=== PATIENT | female | born 1970 | race Caucasian/White ===

== ENCOUNTER 2016-11-02 10:49 | Emergency (ER) | payer OTHER ==
[~2016-11-02] VITALS: Ht 165.1 cm; Wt 142.0 kg
[~2016-11-02 10:49] MED LIST: ALBU1AER5 INH; AZIT250T3 PO; OMEP20TA PO; ROBA750T PO
[2016-11-02 11:07] VITALS: BP 129/79; PULSE 100; RESP 16; TEMP 98.8; O2SAT 95
--- NOTE | 2016-11-02 12:54 | PD ---
HPI Chief Complaint: Abdominal Pain Time Seen by Provider: 12:39 Travel History International Travel<30 days: No Contact w/Intl Traveler<30days: No Traveled to known affect area: No History of Present Illness HPI The patient is a 46-year-old female who presents to the emergency department for increasing abdominal pain with inability to have a bowel movement. The patient has a history of hernias secondary to section, including a hernia through the section scarring as well as a periumbilical hernia. The patient notes increasing difficulty having a bowel movement over the last week and was passing flatness until yesterday. The patient now complains of increasing left upper quadrant abdominal pain, but denies any nausea or vomiting. The patient states she is had an approximately 10 pound weight gain over the last week. The patient denies any known history of previous small bowel obstructions or adhesions. The patient has taken over- the-counter senna and milk of magnesia without any relief of her symptoms. The patient does not currently have a primary physician until November 07 secondary to insurance issues. The patient denies any fever, chills, or sweats. PFSH Past Medical History Asthma: Yes Cardiovascular Problems: No COPD: Yes Diminished Hearing: No Inguinal Hernia: Yes Respiratory: Yes (bronchitis) Immunizations Current: Yes Pneumonia: Yes (?) Tetanus Vaccination: Unknown PNEUMOCCOCAL Vaccine (Year): 2 ?: Not Menopausal: Yes : 4 Para: 5 Tubal Ligation: Yes Past Surgical History Section: Yes (X2) Gynecologic Surgery: Yes (C SECTIONS) Social History Alcohol Use: No Tobacco Use: Yes (1 PPD) Substance Use: No Allergies-Medications (Allergen,Severity, Reaction): Coded Allergies: No Known Allergies (Unverified , 11/02/16) Reported Meds & Prescriptions Reported Meds & Active Scripts Active Omeprazole 20 Mg Tab 20 Mg PO DAILY Proair Respiclick Inh (Albuterol Sulfate) 90 Mcg/Act Aerp 2 Puff INH Q6H PRN Robaxin (Methocarbamol) 750 Mg Tab 750 Mg PO Q8HR Azithromycin 250 Mg Tab 250 Mg PO DIRECTED Take 2 tabs (500 mg) on day 1 then 1 tab daily x 4 days. Review of Systems Except as stated in HPI: all other systems reviewed are Neg General / Constitutional: No: Fever Cardiovascular: No: Chest Pain or Discomfort Respiratory: No: Shortness of Breath Gastrointestinal: Positive: Abdominal Pain, Constipation, Changes in Bowel Habits, No: Nausea, Vomiting, Diarrhea, Loss of Appetite Musculoskeletal: No: Weakness Physical Exam Narrative GENERAL: Awake, alert, nontoxic-appearing 46-year-old female who appears her stated age and is in no acute respiratory distress. SKIN: Warm and dry. HEAD: Atraumatic. Normocephalic. EYES: No injection or drainage. ENT: No nasal bleeding or discharge. Mucous membranes pink and moist. NECK: Trachea midline. No JVD. GASTROINTESTINAL: Abdomen soft, obese, minimal left upper quadrant tenderness. No rebound to his, guarding, or rigidity. No obvious hernia through the incision, apparent diastases when sitting upright. MUSCULOSKELETAL: No obvious deformities. No clubbing. No cyanosis. No edema. NEUROLOGICAL: Awake and alert. No obvious cranial nerve deficits. Motor grossly within normal limits. Normal speech. PSYCHIATRIC: Appropriate mood and affect; insight and judgment normal. Data Data Last Documented VS Vital Signs Date Time Temp Pulse Resp B/P Pulse Ox O2 Delivery O2 Flow Rate FiO2 11/02/16 11:07 98.8 100 16 129/[address] Abd/Pel W/O Iv Contrast (11/02/16 12:46) [facility] Medical Decision Making Medical Screen Exam Complete: Yes Emergency Medical Condition: Yes Medical Record Reviewed: Yes Interpretation(s) Last Impressions Abdomen/Pelvis CT 11/02/16 1246 Signed Impressions: Service Date/Time: Wednesday, November 02, 2016 13:38 - CONCLUSION: No acute intra-abdominal or pelvic process. Defect in the left anterior pelvic wall with herniation of fat into the subcutaneous tissue, hernia. Keanu Cross MD Differential Diagnosis Differential diagnosis includes constipation, small bowel obstruction, partial small bowel obstruction, ileus, adhesions, internal hernia, incarcerated hernia , strangulated hernia. Narrative Course A CT of the abdomen and pelvis without contrast was ordered. CT reveals a hernia in the right anterior abdominal wall that contains fat, but no bowel. No evidence of obstruction. The patient will be prescribed GoLYTELY, she is advised to follow-up with her primary physician on an outpatient basis and return if symptoms worsen or progress. Diagnosis Primary Impression: Constipation Qualified Code: K59.00 - Constipation, unspecified constipation type Additional Impression: Abdominal pain Qualified Code: R10.12 - Left upper quadrant pain Patient Instructions: General Instructions Additional Instructions: Medications as directed. Please provide the patient a copy of her CT report at discharge. Follow-up with her primary physician. Return if symptoms worsen or progress. Med/Other Pt SpecificInfo: Prescription(s) given Scripts Peg-Electrolytes (Golytely 236 gm)4,000 Ml Soln4,000 Ml PO ONCE #1 CONTAINER Ref 0 Prov:Yoni Beatty MD 11/02/16 Disposition: 01 DISCHARGE HOME Condition: Stable Yoni Beatty MD Nov 02, 2016 12:54
--- NOTE | 2016-11-02 13:57 | RADHPO ---
EXAM DATE/TIME: 11/02/2016 13:38 [facility] COMPARISON: No previous studies available for comparison. INDICATIONS : Left upper quadrant pain and constipation x 1 week. ORAL CONTRAST: No oral contrast ingested. RADIATION DOSE: 22.27 CTDIvol (mGy) MEDICAL HISTORY : Chronic obstructive pulmonary disease. SURGICAL HISTORY : section. ENCOUNTER: Initial ACUITY: 1 week PAIN SCALE: 4/10 LOCATION: Left upper quadrant TECHNIQUE: Volumetric scanning of the abdomen and pelvis was performed. Using automated exposure control and ad justment of the mA and/or kV according to patient size, radiation dose was kept as low as reasonably achievable to obtain optimal diagnostic quality images. FINDINGS: LOWER LUNGS: The visualized lower lungs are clear. LIVER: Homogeneous density without lesion. There is no dilation of the biliary tree. No calcified gallston es. The gallbladder seems luminal structure without wall thickening SPLEEN: Normal size without lesion. PANCREAS: Within normal limits. KIDNEYS: Normal in size and shape. There is no mass, stone, or hydronephrosis. ADRENAL GLANDS: Within normal limits. VASCULAR: There is no aortic aneurysm. BOWEL/MESENTERY: The stomach, small bowel, and colon demonstrate no acute abnormality. There is no free intraperitone al air or fluid. ABDOMINAL WALL: Defect in the anterior right pelvic wall through which there is fat containing hernia. RETROPERITONEUM: There is no lymphadenopathy. BLADDER: No wall thickening or mass. REPRODUCTIVE: Within normal limits. INGUINAL: There is no lymphadenopathy or hernia. MUSCULOSKELETAL: Mild degenerative changes lower lumbar spine CONCLUSION: No acute intra-abdominal or pelvic process. Defect in the left anterior pelvic wall with herniation o f fat into the subcutaneous tissue, hernia. Keanu Cross MD on November 02, 2016 at 13:52 Board Certified Radiologist. This report was verified electronically.
[2016-11-02] MEDS ORDERED: COLY4000S PO (14:33)
[2016-11-02 14:49] VITALS: BP 148/69
[2016-12-11] MEDS ORDERED: UMEC1AER INH (15:15)
[2016-12-11] MEDS ORDERED: OMEP20TA PO (15:24)
[2016-12-11] MEDS ORDERED: VARE1PAK3 PO (15:24)
[2016-12-11] MEDS ORDERED: ALBU0.08 NEB (15:30)
[2017-02-11] MEDS ORDERED: BUPR150XL PO (15:29)
[2017-02-11] MEDS ORDERED: METF500T PO (15:31)
[2017-02-11] MEDS ORDERED: MONT10TA2 PO (15:35)
[2017-02-11] MEDS ORDERED: AUGM875T PO (15:35)
[2017-02-11] MEDS ORDERED: FLUC150T PO (15:35)
== END 2016-11-02 14:51 | disposition home or self-care (01) ==
LOC: PHED 10:49
DX: K59.00 Constipation, unspecified (principal); R10.12 Left upper quadrant pain
CPT/HCPCS: 74176